=== PATIENT | male | born 1975 | race Asian ===

== ENCOUNTER 2019-08-14 12:27 | Emergency (ER) | payer SELFPAY ==
--- NOTE | 2019-08-14 13:36 | Event Note ---
ED Screening Note ED Screening Note: N/V/D that began three days ago abd cramping subjective fever no cough, no congestion PMHx HIV, on has not been taking his antivirals in three weeks no allergies to meds This initial assessment/diagnostic orders/clinical plan/treatment(s) is/are subject to change based on patients health status, clinical progression and re- assessment by fellow clinical providers in the ED. Further treatment and workup at subsequent clinical providers discretion. Patient/guardian urged not to elope from the ED as their condition may be serious if not clinically assessed and managed. Initial orders include: labs, UA
[2019-08-14 13:38] VITALS: BP 160/105
[2019-08-14] MEDS ORDERED: SODIUM CHLORIDE 0.9% 1000 ML 1,000 ML IV ONE (14:41)
[2019-08-14] MEDS ORDERED: MORPHINE 4 MG/1 ML INJ IV ONE (14:41)
[2019-08-14] MEDS ORDERED: ONDANSETRON 4 MG/2 ML INJ IV ONE (14:41)
[2019-08-14 15:18] LABS: Basophils % (Auto) 0.3 % (0.0-1.8); Eosinophils # (Auto) 0.1 K/mm3 (0.0-0.4); Eosinophils % (Auto) 1.1 % (0.0-4.3); Hematocrit 45.4 % (35.5-45.6); Hemoglobin 14.5 gm/dl (11.8-15.2); Lymphocytes # (Auto) 1.6 K/mm3 (1.2-5.4); Lymphocytes % (Auto) 31.8 % (13.4-35.0); Mean Corpuscular HGB Conc 32 % (32-34); Mean Corpuscular Volume 74 fl (84-94); Monocytes # (Auto) 0.2 K/mm3 (0.0-0.8); Monocytes % (Auto) 4.4 % (0.0-7.3); Platelet Count 243 K/mm3 (140-440); Red Blood Count 6.14 M/mm3 (3.65-5.03); Red Cell Distribution Width 17.3 % (13.2-15.2)
[2019-08-14 15:40] LABS: Alanine Aminotransferase 11 units/L (7-56); Albumin 4.1 g/dL (3.9-5); BUN/Creatinine Ratio 15; Blood Urea Nitrogen 12 mg/dL (9-20); Calcium 9.2 mg/dL (8.4-10.2); Hemolysis Index 37
--- NOTE | 2019-08-14 16:27 | Emergency Department Report ---
ED General Adult HPI - General Chief complaint: Abdominal Pain Stated complaint: N/V Time Seen by Provider: 08/14/19 13:34 Source: patient Mode of arrival: Ambulatory Limitations: No Limitations - History of Present Illness Initial comments: Patient presents to the emergency department with a chief complaint of abdominal pain with nausea and vomiting. Patient states his symptoms started yesterday. Patient denies diarrhea. Patient states the abdominal pain is diffuse in nature -: Sudden Location: abdomen Severity scale (0 -10): 8 Quality: stabbing Consistency: constant Improves with: none Worsens with: none Associated Symptoms: denies other symptoms Treatments Prior to Arrival: none - Related Data Previous Rx's Medication Instructions Recorded Last Taken Type HYDROcodone/APAP 5-325 [[place] 1 each PO Q6HR PRN #12 tablet 08/14/19 Unknown Rx 5/325] Ondansetron [Zofran Odt] 4 mg PO Q4HR PRN #20 tab.rapdis 08/14/19 Unknown Rx Promethazine [Phenergan TAB] 25 mg PO Q6HR PRN #20 tab 08/14/19 Unknown Rx Allergies Allergy/AdvReac Type Severity Reaction Status Date / Time No Known Allergies Allergy Verified 08/14/19 12:33 ED Review of Systems ROS: Stated complaint: N/V Other details as noted in HPI Constitutional: denies: chills, fever Eyes: denies: eye pain, eye discharge, vision change ENT: denies: ear pain, throat pain Respiratory: denies: cough, shortness of breath, wheezing Cardiovascular: denies: chest pain, palpitations Endocrine: no symptoms reported Gastrointestinal: abdominal pain, nausea, vomiting. denies: diarrhea Genitourinary: denies: urgency, dysuria Musculoskeletal: denies: back pain, joint swelling, arthralgia Skin: denies: rash, lesions Neurological: denies: headache, weakness, paresthesias Psychiatric: denies: anxiety, depression Hematological/Lymphatic: denies: easy bleeding, easy bruising ED Past Medical Hx - Past Medical History Previous Medical History?: Yes Hx Hypertension: Yes - Surgical History Past Surgical History?: No - Social History Smoking Status: Never Smoker Substance Use Type: None - Medications Home Medications: Home Medications Medication Instructions Recorded Confirmed Last Taken Type HYDROcodone/APAP 5-325 [[place] 1 each PO Q6HR PRN #12 tablet 08/14/19 Unknown Rx 5/325] Ondansetron [Zofran Odt] 4 mg PO Q4HR PRN #20 tab.rapdis 08/14/19 Unknown Rx Promethazine [Phenergan TAB] 25 mg PO Q6HR PRN #20 tab 08/14/19 Unknown Rx ED Physical Exam - General Limitations: No Limitations General appearance: alert, in no apparent distress - Head Head exam: Present: atraumatic, normocephalic - Eye Eye exam: Present: normal appearance, PERRL, EOMI - ENT ENT exam: Present: mucous membranes dry - Neck Neck exam: Present: normal inspection - Respiratory Respiratory exam: Present: normal lung sounds bilaterally. Absent: respiratory distress - Cardiovascular Cardiovascular Exam: Present: regular rate, normal rhythm. Absent: systolic murmur, diastolic murmur, rubs, gallop - GI/Abdominal GI/Abdominal exam: Present: soft, tenderness (right diffusely tender to palpation ), normal bowel sounds. Absent: distended - Rectal Rectal exam: Present: deferred - Extremities Exam Extremities exam: Present: normal inspection - Back Exam Back exam: Present: normal inspection - Neurological Exam Neurological exam: Present: alert, oriented X3, CN II-XII intact. Absent: motor sensory deficit - Psychiatric Psychiatric exam: Present: normal affect, normal mood - Skin Skin exam: Present: warm, dry, intact, normal color. Absent: rash ED Course Vital Signs 08/14/19 13:36 Temperature 98.7 F Pulse Rate 64 Respiratory 18 Rate Blood Pressure 160/105 Blood Pressure 160/105 [Right] O2 Sat by Pulse 98 Oximetry ED Medical Decision Making - Lab Data Result diagrams: 08/14/19 15:03 08/14/19 15:03 Lab Results 08/14/19 08/14/19 08/14/19 Range/Units 15:03 15:03 16:52 WBC 5.1 (4.5-11.0) K/mm3 RBC 6.14 H (3.65-5.03) M/mm3 Hgb 14.5 (11.8-15.2) gm/dl Hct 45.4 (35.5-45.6) % MCV 74 L (84-94) fl MCH 24 L (28-32) pg MCHC 32 (32-34) % RDW 17.3 H (13.2-15.2) % Plt Count 243 (140-440) K/mm3 Lymph % (Auto) 31.8 (13.4-35.0) % [place] % (Auto) 4.4 (0.0-7.3) % Eos % (Auto) 1.1 (0.0-4.3) % Baso % (Auto) 0.3 (0.0-1.8) % Lymph # 1.6 (1.2-5.4) K/mm3 [place] # 0.2 (0.0-0.8) K/mm3 Eos # 0.1 (0.0-0.4) K/mm3 Baso # 0.0 (0.0-0.1) K/mm3 Seg Neutrophils % 62.4 (40.0-70.0) % Seg Neutrophils # 3.2 (1.8-7.7) K/mm3 Sodium 138 (137-145) mmol/L Potassium 3.9 (3.6-5.0) mmol/L Chloride 101.9 (98-107) mmol/L Carbon Dioxide 23 (22-30) mmol/L Anion Gap 17 mmol/L BUN 12 (9-20) mg/dL Creatinine 0.8 (0.8-1.5) mg/dL Estimated GFR > 60 ml/min BUN/Creatinine Ratio 15 % Glucose 87 (75-100) mg/dL Calcium 9.2 (8.4-10.2) mg/dL Total Bilirubin 0.80 (0.1-1.2) mg/dL AST 22 (5-40) units/L ALT 11 (7-56) units/L Alkaline Phosphatase 60 (35-129) units/L Total Protein 9.1 H (6.3-8.2) g/dL Albumin 4.1 (3.9-5) g/dL Albumin/Globulin Ratio 0.8 % Lipase 37 (13-60) units/L Urine Color Yellow (Yellow) Urine Turbidity Clear (Clear) Urine pH 7.0 (5.0-7.0) Ur Specific [place] 1.029 (1.003-1.030) Urine Protein 100 mg/dl (Negative) mg/dL Urine Glucose (UA) Neg (Negative) mg/dL Urine Ketones 80 (Negative) mg/dL Urine Blood Neg (Negative) Urine Nitrite Neg (Negative) Urine Bilirubin Neg (Negative) Urine Urobilinogen 4.0 (<2.0) mg/dL Ur Leukocyte Esterase Neg (Negative) Urine WBC (Auto) 4.0 (0.0-6.0) /HPF Urine RBC (Auto) 13.0 (0.0-6.0) /HPF U Epithel Cells (Auto) 2.0 (0-13.0) /HPF Urine Mucus 2+ /HPF - Radiology Data Radiology results: report reviewed - Medical Decision Making Discussed results with patient Critical care attestation.: If time is entered above; I have spent that time in minutes in the direct care of this critically ill patient, excluding procedure time. ED Disposition Clinical Impression: Abdominal pain, Gallstones, Nausea & vomiting Disposition: TO HOME OR SELFCARE Is pt being admited?: No Does the pt Need Aspirin: No Condition: Stable Instructions: Abdominal Pain (ED), Biliary Colic (ED), Acute Nausea and Vomiting (ED) Additional Instructions: return if worse Referrals: [facility] [Other] - 3-5 Days KYE TODD MD [Staff Physician] - 3-5 Days Time of Disposition: 18:23
[2019-08-14 17:21] LABS: Bilirubin,Urine NEG (Negative); Blood,Urine NEG (Negative); Color,Urine Yellow (Yellow); Mucus,Urine 2+ /HPF
--- NOTE | 2019-08-14 18:10 | Cat Scan Report ---
CT OF THE ABDOMEN AND PELVIS WITH INTRAVENOUS CONTRAST INDICATION / CLINICAL INFORMATION: Abdominal pain. TECHNIQUE: The patient received 100 cc Omnipaque [address] scans at this location are performed using CT dose reduction for ALARA by means of automated exposure control. COMPARISON: None available. FINDINGS: ABDOMEN: There are numerous tiny calcified stones in the gallbladder. The gallbladder is normal in si ze without wall thickening. There is a 6 mm rounded cyst in the pancreatic head. There is a tiny cyst in the dome of the liver. The bile ducts, spleen and adrenal glands are normal. There are small bila teral simple renal cysts, the largest which measures 1.7 cm on the left. There are multiple nonobstru ctive left renal calculi, the largest of which measures approximately 8 mm. There is associated corti elodia scarring involving the left kidney. There is no evidence of bowel obstruction, wall thickening or free air. No adenopathy is seen. The lung bases are clear. PELVIS: The distal ureters, urinary bladder and prostate gland are normal. There is no evidence of di verticulitis. A normal appendix is present. No abnormal mass or fluid collection is seen. I do not id entify a hernia. IMPRESSION: 1. Cholelithiasis without CT evidence of acute cholecystitis. 2. Nonobstructive left nephrolithiasis with associated cortical scarring. 3. Incidental 6 mm cyst in the pancreatic head. Reimaging every year for 5 years is recommended to do cument stability (utilizing contrast enhanced MRI or pancreas protocol CT). Signer Name: Adrián Wright MD Signed: 08/14/2019 6:06 PM Workstation Name: [id number]
== END 2019-08-14 18:37 | disposition home or self-care (01) ==
LOC: ED 12:27
DX: K80.80 Other cholelithiasis without obstruction (principal); R11.2 Nausea with vomiting, unspecified; I10 Essential (primary) hypertension
CPT/HCPCS: 36415; 74177; 80053; 81001; 83690; 85025; 96361; 96374; 96375; 99284; J2270; J2405; J7030; Q9967

== ENCOUNTER 2020-01-14 11:56 | Inpatient (IN) | payer OTHER ==
[2020-01-14] MEDS ORDERED: MORPHINE 4 MG/1 ML INJ IV ONE (13:45)
[2020-01-14] MEDS ORDERED: DICYCLOMINE 10 MG/5 ML ORAL LIQD PO ONE (13:45)
[2020-01-14] MEDS ORDERED: ONDANSETRON 4 MG/2 ML INJ IV ONE (13:45)
[2020-01-14] MEDS ORDERED: SODIUM CHLORIDE 0.9% 1000 ML 1,000 ML IV ONE (13:45)
[2020-01-14 13:46] LABS: Basophils % (Auto) 0.4 % (0.0-1.8); Eosinophils % (Auto) 0.3 % (0.0-4.3); Hematocrit 45.9 % (35.5-45.6); Hemoglobin 14.6 gm/dl (11.8-15.2); Lymphocytes % (Auto) 38.3 % (13.4-35.0); Mean Corpuscular HGB Conc 32 % (32-34); Mean Corpuscular Volume 74 fl (84-94); Monocytes # (Auto) 0.5 K/mm3 (0.0-0.8); Monocytes % (Auto) 6.5 % (0.0-7.3); Platelet Count 300 K/mm3 (140-440); Red Cell Distribution Width 19.1 % (13.2-15.2)
--- NOTE | 2020-01-14 13:59 | Emergency Department Report ---
ED Abdominal Pain HPI - General Chief Complaint: Abdominal Pain Stated Complaint: SOB/V Time Seen by Provider: 01/14/20 13:44 Source: patient Mode of arrival: Ambulatory Limitations: No Limitations - History of Present Illness Initial Comments: This is a 44-year-old male nontoxic, well nourished in appearance, no acute signs of distress presents to the ED with c/o of nausea and vomiting and abdominal pain 1 day. Patient describes vomiting as food content and yellow gastric acid. Patient describes abdominal pain as cramping and aching with level of 3/10 diffuse. Patient denies chest pain, short of breath, fever, hemoptysis, blood in stool, chills, headache, stiff neck, numbness or tingling. Patient denies any diarrhea or constipation. Denies any blood in stool. Patient denies any recent travels. Patient denies any allergies. PMH includes HIV. MD Complaint: abdominal pain -: days(s) Location: diffuse Radiation: none Migration to: no migration Severity: mild Severity scale (0 -10): 8 Quality: cramping, aching Consistency: constant Improves With: nothing Worsens With: nothing Associated Symptoms: nausea, vomiting. denies: diarrhea, fever, chills, constipation, dysuria, hematemesis, hematochezia, melena, hematuria, anorexia, syncope - Related Data Previous Rx's Medication Instructions Recorded Last Taken Type HYDROcodone/APAP 5-325 [[place] 1 each PO Q6HR PRN #12 tablet 08/14/19 Unknown Rx 5/325] Ondansetron [Zofran Odt] 4 mg PO Q4HR PRN #20 tab.rapdis 08/14/19 Unknown Rx Promethazine [Phenergan TAB] 25 mg PO Q6HR PRN #20 tab 08/14/19 Unknown Rx Allergies Allergy/AdvReac Type Severity Reaction Status Date / Time No Known Allergies Allergy Verified 01/14/20 12:07 ED Review of Systems ROS: Stated complaint: SOB/V Other details as noted in HPI Constitutional: denies: chills, fever Eyes: denies: eye pain, eye discharge, vision change ENT: denies: ear pain, throat pain Respiratory: denies: cough, shortness of breath, wheezing Cardiovascular: denies: chest pain, palpitations Endocrine: no symptoms reported Gastrointestinal: abdominal pain, nausea, vomiting. denies: diarrhea Genitourinary: denies: urgency, dysuria Musculoskeletal: denies: back pain, joint swelling, arthralgia Skin: denies: rash, lesions Neurological: denies: headache, weakness, paresthesias Psychiatric: denies: anxiety, depression Hematological/Lymphatic: denies: easy bleeding, easy bruising ED Past Medical Hx - Past Medical History Previous Medical History?: No Hx Hypertension: Yes - Surgical History Past Surgical History?: No - Social History Smoking Status: Never Smoker - Medications Home Medications: Home Medications Medication Instructions Recorded Confirmed Last Taken Type HYDROcodone/APAP 5-325 [[place] 1 each PO Q6HR PRN #12 tablet 08/14/19 Unknown Rx 5/325] Ondansetron [Zofran Odt] 4 mg PO Q4HR PRN #20 tab.rapdis 08/14/19 Unknown Rx Promethazine [Phenergan TAB] 25 mg PO Q6HR PRN #20 tab 08/14/19 Unknown Rx ED Physical Exam - General Limitations: No Limitations General appearance: alert, in no apparent distress - Head Head exam: Present: atraumatic, normocephalic - Eye Eye exam: Present: normal appearance - Neck Neck exam: Present: normal inspection, full ROM. Absent: tenderness, meningismus, lymphadenopathy - Respiratory Respiratory exam: Present: normal lung sounds bilaterally. Absent: respiratory distress, wheezes, rales, rhonchi, stridor, chest wall tenderness, accessory muscle use, decreased breath sounds, prolonged expiratory - Cardiovascular Cardiovascular Exam: Present: regular rate, normal rhythm, normal heart sounds. Absent: irregular rhythm, systolic murmur, diastolic murmur, rubs, gallop - GI/Abdominal GI/Abdominal exam: Present: soft, tenderness (diffuse), normal bowel sounds. Absent: distended, guarding, rebound, rigid, diminished bowel sounds - Extremities Exam Extremities exam: Present: normal inspection, full ROM, normal capillary refill. Absent: tenderness - Back Exam Back exam: Present: normal inspection, full ROM. Absent: tenderness, CVA tenderness (R), CVA tenderness (L), muscle spasm, paraspinal tenderness, vertebral tenderness, rash noted - Neurological Exam Neurological exam: Present: alert, oriented X3, normal gait - Psychiatric Psychiatric exam: Present: normal affect, normal mood - Skin Skin exam: Present: warm, dry, intact, normal color. Absent: rash ED Course Vital Signs 01/14/20 01/14/20 13:43 15:27 Temperature 98.2 F Pulse Rate 68 Respiratory 18 16 Rate Blood Pressure 105/67 [Left] O2 Sat by Pulse 98 Oximetry - Reevaluation(s) Reevaluation #1: 01/14/20 13:59 Patient is speaking in full sentences with no signs of distress noted. - Consultations Consultation #1: 01/14/20 16:25 Patient has been consulted with Dr. Cruz (general surgery) about patient history, physical exam, and labs/imaging studies and agrees for admission and ED treatment plan. ED Medical Decision Making - Lab Data Result diagrams: 01/14/20 12:53 01/14/20 12:53 Lab Results 01/14/20 Range/Units 12:53 WBC 7.9 (4.5-11.0) K/mm3 RBC 6.20 H (3.65-5.03) M/mm3 Hgb 14.6 (11.8-15.2) gm/dl Hct 45.9 H (35.5-45.6) % MCV 74 L (84-94) fl MCH 24 L (28-32) pg MCHC 32 (32-34) % RDW 19.1 H (13.2-15.2) % Plt Count 300 (140-440) K/mm3 Lymph % (Auto) 38.3 H (13.4-35.0) % [place] % (Auto) 6.5 (0.0-7.3) % Eos % (Auto) 0.3 (0.0-4.3) % Baso % (Auto) 0.4 (0.0-1.8) % Lymph # 3.0 (1.2-5.4) K/mm3 [place] # 0.5 (0.0-0.8) K/mm3 Eos # 0.0 (0.0-0.4) K/mm3 Baso # 0.0 (0.0-0.1) K/mm3 Seg Neutrophils % 54.5 (40.0-70.0) % Seg Neutrophils # 4.3 (1.8-7.7) K/mm3 Lab Results 01/14/20 01/14/20 01/14/20 Range/Units 12:53 12:53 12:53 WBC 7.9 (4.5-11.0) K/mm3 RBC 6.20 H (3.65-5.03) M/mm3 Hgb 14.6 (11.8-15.2) gm/dl Hct 45.9 H (35.5-45.6) % MCV 74 L (84-94) fl MCH 24 L (28-32) pg MCHC 32 (32-34) % RDW 19.1 H (13.2-15.2) % Plt Count 300 (140-440) K/mm3 Lymph % (Auto) 38.3 H (13.4-35.0) % [place] % (Auto) 6.5 (0.0-7.3) % Eos % (Auto) 0.3 (0.0-4.3) % Baso % (Auto) 0.4 (0.0-1.8) % Lymph # 3.0 (1.2-5.4) K/mm3 [place] # 0.5 (0.0-0.8) K/mm3 Eos # 0.0 (0.0-0.4) K/mm3 Baso # 0.0 (0.0-0.1) K/mm3 Seg Neutrophils % 54.5 (40.0-70.0) % Seg Neutrophils # 4.3 (1.8-7.7) K/mm3 Sodium 137 (137-145) mmol/L Potassium 4.2 (3.6-5.0) mmol/L Chloride 95.8 L (98-107) mmol/L Carbon Dioxide 23 (22-30) mmol/L Anion Gap 22 mmol/L BUN 15 (9-20) mg/dL Creatinine 1.0 (0.8-1.5) mg/dL Estimated GFR > 60 ml/min BUN/Creatinine Ratio 15 % Glucose 87 (75-100) mg/dL Calcium 9.8 (8.4-10.2) mg/dL Total Bilirubin 0.90 (0.1-1.2) mg/dL AST 27 (5-40) units/L ALT 20 (7-56) units/L Alkaline Phosphatase 92 (35-129) units/L Total Protein 9.5 H (6.3-8.2) g/dL Albumin 4.6 (3.9-5) g/dL Albumin/Globulin Ratio 0.9 % Lipase 45 (13-60) units/L Urine Color (Yellow) Urine Turbidity (Clear) Urine pH (5.0-7.0) Ur Specific [place] (1.003-1.030) Urine Protein (Negative) mg/dL Urine Glucose (UA) (Negative) mg/dL Urine Ketones (Negative) mg/dL Urine Blood (Negative) Urine Nitrite (Negative) Urine Bilirubin (Negative) Urine Urobilinogen (<2.0) mg/dL Ur Leukocyte Esterase (Negative) Urine WBC (Auto) (0.0-6.0) /HPF Urine RBC (Auto) (0.0-6.0) /HPF U Epithel Cells (Auto) (0-13.0) /HPF Urine Mucus /HPF 01/14/20 Range/Units Unknown WBC (4.5-11.0) K/mm3 RBC (3.65-5.03) M/mm3 Hgb (11.8-15.2) gm/dl Hct (35.5-45.6) % MCV (84-94) fl MCH (28-32) pg MCHC (32-34) % RDW (13.2-15.2) % Plt Count (140-440) K/mm3 Lymph % (Auto) (13.4-35.0) % [place] % (Auto) (0.0-7.3) % Eos % (Auto) (0.0-4.3) % Baso % (Auto) (0.0-1.8) % Lymph # (1.2-5.4) K/mm3 [place] # (0.0-0.8) K/mm3 Eos # (0.0-0.4) K/mm3 Baso # (0.0-0.1) K/mm3 Seg Neutrophils % (40.0-70.0) % Seg Neutrophils # (1.8-7.7) K/mm3 Sodium (137-145) mmol/L Potassium (3.6-5.0) mmol/L Chloride (98-107) mmol/L Carbon Dioxide (22-30) mmol/L Anion Gap mmol/L BUN (9-20) mg/dL Creatinine (0.8-1.5) mg/dL Estimated GFR ml/min BUN/Creatinine Ratio % Glucose (75-100) mg/dL Calcium (8.4-10.2) mg/dL Total Bilirubin (0.1-1.2) mg/dL AST (5-40) units/L ALT (7-56) units/L Alkaline Phosphatase (35-129) units/L Total Protein (6.3-8.2) g/dL Albumin (3.9-5) g/dL Albumin/Globulin Ratio % Lipase (13-60) units/L Urine Color Yellow (Yellow) Urine Turbidity Clear (Clear) Urine pH 6.0 (5.0-7.0) Ur Specific [place] 1.031 H (1.003-1.030) Urine Protein 100 mg/dl (Negative) mg/dL Urine Glucose (UA) Neg (Negative) mg/dL Urine Ketones Tr (Negative) mg/dL Urine Blood Sm (Negative) Urine Nitrite Neg (Negative) Urine Bilirubin Neg (Negative) Urine Urobilinogen < 2.0 (<2.0) mg/dL Ur Leukocyte Esterase Tr (Negative) Urine WBC (Auto) 18.0 H (0.0-6.0) /HPF Urine RBC (Auto) 11.0 (0.0-6.0) /HPF U Epithel Cells (Auto) 3.0 (0-13.0) /HPF Urine Mucus 3+ /HPF - Radiology Data CT abdomen pelvis w con INDICATION: abd pain. TECHNIQUE: All CT scans at this location are performed using the following dose modulation technique: Automated exposure control. CONTRAST: IV. COMPARISON: CT abdomen and pelvis 08/14/2019. CT ABDOMEN: Evaluation of the parenchymal organs demonstrates a subcentimeter low-density lesion at the dome the liver, left renal cyst and nonobstructing left renal stones with the largest measuring 8 mm. Medial left renal scarring remains. The remaining parenchymal organs are unremarkable. Negative for abdominal mass, fluid or inflammation. The bowel is not dilated. Calcified gallstones are present. CT PELVIS: The appendix is normal. Colonic thickening at the hepatic flexure, descending colon and sigmoid colon is mild. IMPRESSION: 1. Mild left-sided colitis. The distribution can be seen with ischemia. 2. The appearance of the liver and left kidney is unchanged. Signer Name: Corey Barajas MD Signed: 01/14/2020 2:27 PM Workstation Name: [id number] - Medical Decision Making 44-year-old male that presents with colitis. Patient is stable and was examined by me. Labs has been obtained. CT scan dictated by radiologist with colitis possible ischemic changes. Patient consulted with Dr. Cruz and admitted with hospitalist Dr. Elise. Patient placed on n.p.o. Received antibiotics in the ER. At time of admission, the patient does not seem toxic or ill in appearance. No acute signs of distress noted. Patient agrees to admission treatment plan of care. No further questions noted by the patient. Critical care attestation.: If time is entered above; I have spent that time in minutes in the direct care of this critically ill patient, excluding procedure time. ED Disposition Clinical Impression: Colitis Disposition: OP ADMIT IP TO THIS HOSP Is pt being admited?: Yes
[2020-01-14 14:09] LABS: Alanine Aminotransferase 20 units/L (7-56); Albumin 4.6 g/dL (3.9-5); BUN/Creatinine Ratio 15; Blood Urea Nitrogen 15 mg/dL (9-20); Calcium 9.8 mg/dL (8.4-10.2); Hemolysis Index 10
[2020-01-14 15:12] LABS: Bilirubin,Urine NEG (Negative); Blood,Urine SM (Negative); Color,Urine Yellow (Yellow); Mucus,Urine 3+ /HPF; Urobilinogen,Urine < 2.0 mg/dL (<2.0)
--- NOTE | 2020-01-14 15:31 | Cat Scan Report ---
CT abdomen pelvis w con INDICATION: abd pain. TECHNIQUE: All CT scans at this location are performed using the following dose modulation technique: Automated exposure control. CONTRAST: IV. COMPARISON: CT abdomen and pelvis 08/14/2019. CT ABDOMEN: Evaluation of the parenchymal organs demonstrates a subcentimeter low-density lesion at t he dome the liver, left renal cyst and nonobstructing left renal stones with the largest measuring 8 mm. Medial left renal scarring remains. The remaining parenchymal organs are unremarkable. Negative for abdominal mass, fluid or inflammation. The bowel is not dilated. Calcified gallstones ar e present. CT PELVIS: The appendix is normal. Colonic thickening at the hepatic flexure, descending colon and sigmoid colon is mild. IMPRESSION: 1. Mild left-sided colitis. The distribution can be seen with ischemia. 2. The appearance of the liver and left kidney is unchanged. Signer Name: Corey Barajas MD Signed: 01/14/2020 3:27 PM Workstation Name: [id number]
[2020-01-14] MEDS ORDERED: metroNIDAZOLE/NS 500 MG/100 ML 500 MG/100 ML BAG IV ONE (16:24)
--- NOTE | 2020-01-14 17:36 | Consultation ---
History of Present Illness Consult date: 01/14/20 Reason for consult: abdominal pain Chief complaint: Abdominal pain - History of present illness History of present illness: 44-year-old male with past medical history of HIV who presented to the emergency room with 1 day history of acute abdominal pain, nausea, vomiting. The patient states that yesterday he had one episode of diarrhea and then had a meal at [employer]. After he ate, he immediately felt the urge to vomit. He describes crampy abdominal pain, now mostly in the left abdomen. It does not radiate. His nausea and vomiting are resolved. When he did have vomiting, he states it was a mixture of green and orange. No hematemesis. No fevers, chills, chest pain, shortness of breath. He states that he has had similar symptoms once before few months ago which resolved with some antinausea and pain medications in the emergency room. After being treated in the emergency room on this visit, the patient states he feels much better. He feels very hungry. His abdominal pain is almost resolved. Past History Past Medical History: HIV/AIDS Past Surgical History: No surgical history Social history: no significant social history Family history: cancer (Sister with colon cancer in her 30s) Medications and Allergies Allergies Allergy/AdvReac Type Severity Reaction Status Date / Time No Known Allergies Allergy Verified 01/14/20 12:07 Home Medications Medication Instructions Recorded Confirmed Last Taken Type HYDROcodone/APAP 5-325 [[place] 1 each PO Q6HR PRN #12 tablet 08/14/19 Unknown Rx 5/325] Ondansetron [Zofran Odt] 4 mg PO Q4HR PRN #20 tab.rapdis 08/14/19 Unknown Rx Promethazine [Phenergan TAB] 25 mg PO Q6HR PRN #20 tab 08/14/19 Unknown Rx Active Meds: Active Medications Levofloxacin/Dextrose (Levaquin 750mg/150ml) 750 mg in 150 mls @ 100 mls/hr IV ONCE ONE; Protocol Stop: 01/14/20 17:54 Review of Systems All systems: negative (10 point review of systems was performed and negative except for that listed in HPI) Exam Vital Signs Resp 18 01/14/20 13:43 Narrative exam: Gen.: Awake, alert, oriented 3. No apparent distress ENT: Trachea midline. No lymphadenopathy. No scleral icterus or conjunctival pallor CV: S1, S2 present Respiratory: No audible wheezes Abdomen: Soft, nondistended, nontender. No rebound, rigidity, guarding Extremities: No clubbing, cyanosis, edema Results - Labs 01/14/20 12:53 01/14/20 12:53 Abnormal lab results 01/14/20 01/14/20 01/14/20 Range/Units 12:53 12:53 Unknown RBC 6.20 H (3.65-5.03) M/mm3 Hct 45.9 H (35.5-45.6) % MCV 74 L (84-94) fl MCH 24 L (28-32) pg RDW 19.1 H (13.2-15.2) % Lymph % (Auto) 38.3 H (13.4-35.0) % Chloride 95.8 L (98-107) mmol/L Total Protein 9.5 H (6.3-8.2) g/dL Ur Specific [place] 1.031 H (1.003-1.030) Urine WBC (Auto) 18.0 H (0.0-6.0) /HPF Diabetes panel 01/14/20 Range/Units 12:53 Sodium 137 (137-145) mmol/L Potassium 4.2 (3.6-5.0) mmol/L Chloride 95.8 L (98-107) mmol/L Carbon Dioxide 23 (22-30) mmol/L BUN 15 (9-20) mg/dL Creatinine 1.0 (0.8-1.5) mg/dL Glucose 87 (75-100) mg/dL Calcium 9.8 (8.4-10.2) mg/dL AST 27 (5-40) units/L ALT 20 (7-56) units/L Alkaline Phosphatase 92 (35-129) units/L Total Protein 9.5 H (6.3-8.2) g/dL Albumin 4.6 (3.9-5) g/dL Calcium panel 01/14/20 Range/Units 12:53 Calcium 9.8 (8.4-10.2) mg/dL Albumin 4.6 (3.9-5) g/dL Pituitary panel 01/14/20 Range/Units 12:53 Sodium 137 (137-145) mmol/L Potassium 4.2 (3.6-5.0) mmol/L Chloride 95.8 L (98-107) mmol/L Carbon Dioxide 23 (22-30) mmol/L BUN 15 (9-20) mg/dL Creatinine 1.0 (0.8-1.5) mg/dL Glucose 87 (75-100) mg/dL Calcium 9.8 (8.4-10.2) mg/dL Adrenal panel 01/14/20 Range/Units 12:53 Sodium 137 (137-145) mmol/L Potassium 4.2 (3.6-5.0) mmol/L Chloride 95.8 L (98-107) mmol/L Carbon Dioxide 23 (22-30) mmol/L BUN 15 (9-20) mg/dL Creatinine 1.0 (0.8-1.5) mg/dL Glucose 87 (75-100) mg/dL Calcium 9.8 (8.4-10.2) mg/dL Total Bilirubin 0.90 (0.1-1.2) mg/dL AST 27 (5-40) units/L ALT 20 (7-56) units/L Alkaline Phosphatase 92 (35-129) units/L Total Protein 9.5 H (6.3-8.2) g/dL Albumin 4.6 (3.9-5) g/dL - Imaging CT scan - abdomen: report reviewed, image reviewed CT scan - pelvis: report reviewed, image reviewed Assessment and Plan 44-year-old male with mild left-sided colitis Plan: Pt admitted to hospitalist service 1. full liquid diet and adv as skye 2. IVF 3. IV abx -> may transition to p.o. upon discharge for 10 days total 4. prn pain and nausea control 5. Strongly recommend outpatient referral to gastroenterology for colonoscopy as patient has a first-degree relative who had colon cancer in her 30s. This was discussed with the patient 6. ok to dc in am if skye diet Thank you, please call with questions
[2020-01-14] MEDS ORDERED: MORPHINE 2 MG/1 ML INJ IV PRN (22:09)
[2020-01-14] MEDS ORDERED: ONDANSETRON 4 MG/2 ML INJ IV PRN (22:09)
[2020-01-14] MEDS ORDERED: MAGNESIUM HYDROXIDE (MOM) ORAL LIQD UDC PO PRN (22:09)
[2020-01-14] MEDS ORDERED: ACETAMINOPHEN 325 MG TAB PO PRN (22:09)
--- NOTE | 2020-01-14 22:17 | History and Physical Report ---
History of Present Illness Date of examination: 01/14/20 Date of admission: 01/14/20 21:34 Chief complaint: Abdominal pain History of present illness: 44-year-old male with significant history of HIV presenting to the emergency room today complaining of nausea and vomiting with associated abdominal pain. Abdominal pain is said to be diffuse and on a scale of 10 was about 3/10. Abdominal pain was more on the left side of his abdomen. He denies any chest pain or shortness of breath, denies any fever or chills, no headache or dizziness, no bright red blood per rectum, no hematuria or dysuria. He had a bout of diarrhea which has since resolved. Patient denies any sick contacts and no recent travel. Work-up in the emergency room including CT of the abdomen and pelvis was concerning for colitis with possible ischemia. General surgeon Dr. Cruz was consulted by the ER physician patient will be promptly evaluated. Past History Past Medical History: HIV/AIDS Past Surgical History: No surgical history Social history: no significant social history Family history: cancer (Sister with colon cancer in her 30s) Medications and Allergies Allergies Allergy/AdvReac Type Severity Reaction Status Date / Time No Known Allergies Allergy Verified 01/14/20 12:07 Home Medications Medication Instructions Recorded Confirmed Last Taken Type Bictegrav/Emtricit/Tenofov Ala 1 tab PO DAILY 01/14/20 01/14/20 01/13/20 History [Biktarvy 50-200-25 mg (Nf)] 1 Active Meds: Active Medications Acetaminophen (Tylenol) 650 mg PO Q4H PRN PRN Reason: Pain MILD(1-3)/Fever >100.5/LOGAN Sodium Chloride (Nacl 0.9% 1000 Ml) 1,000 mls @ 125 mls/hr IV DIRECT NILTON Magnesium Hydroxide (Milk Of Magnesia) 30 ml PO Q4H PRN PRN Reason: Constipation Morphine Sulfate (Morphine) 2 mg IV Q4H PRN PRN Reason: Pain, Moderate (4-6) Ondansetron HCl (Zofran) 4 mg IV Q8H PRN PRN Reason: Nausea And Vomiting Sodium Chloride (Sodium Chloride Flush Syringe 10 Ml) 10 ml IV BID NILTON Sodium Chloride (Sodium Chloride Flush Syringe 10 Ml) 10 ml IV PRN PRN PRN Reason: LINE FLUSH Review of Systems Constitutional: no fever, no chills Cardiovascular: no chest pain, no palpitations Respiratory: no cough, no shortness of breath Gastrointestinal: abdominal pain, nausea, vomiting Genitourinary Male: no dysuria, no hematuria Musculoskeletal: no neck pain, no low back pain Integumentary: no rash, no pruritis Neurological: no headaches, no confusion Psychiatric: no anxiety, no depression Exam - Constitutional Vitals: Temp Pulse Resp BP Pulse Ox 98.7 F 70 18 107/56 99 01/14/20 22:08 01/14/20 22:07 01/14/20 22:07 01/14/20 22:07 01/14/20 22:07 General appearance: Present: no acute distress, well-nourished - EENT Eyes: Present: PERRL, EOM intact ENT: hearing intact, clear oral mucosa, dentition normal - Neck Neck: Present: supple, normal ROM - Respiratory Respiratory effort: normal Respiratory: bilateral: CTA - Cardiovascular Rhythm: regular Heart Sounds: Present: S1 & S2 - Extremities Extremities: no ischemia, pulses intact, pulses symmetrical, No edema, Full ROM Peripheral Pulses: within normal limits - Abdominal General gastrointestinal: Present: soft, non-tender, tender (Mild tenderness in the left lower quadrant), normal bowel sounds - Integumentary Integumentary: Present: clear, warm, dry - Musculoskeletal Musculoskeletal: strength equal bilaterally - Psychiatric Psychiatric: appropriate mood/affect, intact judgment & insight, cooperative - Neurologic Neurologic: CNII-XII intact, moves all extremities Results - Labs CBC & Chem 7: 01/15/20 03:59 01/15/20 03:59 Labs: Abnormal lab results 01/14/20 01/14/20 01/14/20 Range/Units 12:53 12:53 Unknown RBC 6.20 H (3.65-5.03) M/mm3 Hct 45.9 H (35.5-45.6) % MCV 74 L (84-94) fl MCH 24 L (28-32) pg RDW 19.1 H (13.2-15.2) % Lymph % (Auto) 38.3 H (13.4-35.0) % Chloride 95.8 L (98-107) mmol/L Total Protein 9.5 H (6.3-8.2) g/dL Ur Specific [place] 1.031 H (1.003-1.030) Urine WBC (Auto) 18.0 H (0.0-6.0) /HPF Assessment and Plan - Patient Problems (1) Colitis Current Visit: Yes Status: Acute Plan to address problem: Patient admitted and placed on IV fluid and empiric IV antibiotics. General surgeon Dr. Cruz has been consulted for evaluation. (2) DVT prophylaxis Current Visit: Yes Status: Acute Plan to address problem: Patient placed on sequential compression device. (3) Full code status Current Visit: Yes Status: Acute
[2020-01-15] MEDS: SODIUM CHLORIDE 0.9% 1000 ML 1,000 ML IV SCH ×2 (00:29→05:22)
[2020-01-15 04:44] LABS: Hematocrit 40.5 % (35.5-45.6); Hemoglobin 12.9 gm/dl (11.8-15.2); Mean Corpuscular HGB Conc 32 % (32-34); Mean Corpuscular Volume 72 fl (84-94); Platelet Count 298 K/mm3 (140-440); Red Blood Count 5.59 M/mm3 (3.65-5.03); Red Cell Distribution Width 19.1 % (13.2-15.2)
[2020-01-15 04:48] LABS: INR 1.01 (0.87-1.13)
[2020-01-15 04:59] LABS: BUN/Creatinine Ratio 17; Blood Urea Nitrogen 15 mg/dL (9-20); Calcium 8.6 mg/dL (8.4-10.2); Hemolysis Index 95
[2020-01-15] MEDS: metroNIDAZOLE/NS 500 MG/100 ML 500 MG/100 ML BAG IV SCH ×3 (05:21→21:22)
[2020-01-15 06:00] LABS: Basophils % (Manual) 0 % (0.0-1.8); Hypochromasia 1+; Total Cells Counted 100
[2020-01-15 06:01] LABS: Burr Cells Rare; Ovalocytes Few; Schistocytes Few; Target Cells 1+
[2020-01-15 06:02] LABS: Platelet Estimate Consistent w Auto
--- NOTE | 2020-01-15 11:49 | Progress Note ---
Assessment and Plan Assessment and plan: Acute colitis. Continue IV antibiotics. Surgery following. Consult GI for further evaluation. Advance diet today. Nausea and vomiting. Improved. Continue antiemetics. Strong family history Colon CA. GI F/U HIV/AIDS. Follow-up with ID as an outpatient. History Interval history: No new issues overnight. Hospitalist Physical - Constitutional Vitals: Temp Pulse Resp BP Pulse Ox 98.2 F 65 18 100/66 100 01/15/20 07:11 01/15/20 07:11 01/15/20 07:11 01/15/20 07:11 01/15/20 07:11 General appearance: Present: no acute distress, well-nourished - EENT Eyes: Present: PERRL, EOM intact ENT: hearing intact, clear oral mucosa, dentition normal - Neck Neck: Present: supple, normal ROM - Respiratory Respiratory effort: normal Respiratory: bilateral: CTA - Cardiovascular Rhythm: regular Heart Sounds: Present: S1 & S2. Absent: gallop, rub - Extremities Extremities: no ischemia, No edema, Full ROM - Abdominal General gastrointestinal: soft, non-tender, non-distended, normal bowel sounds - Integumentary Integumentary: Present: clear, warm, dry - Neurologic Neurologic: CNII-XII intact, moves all extremities Results - Labs CBC & Chem 7: 01/15/20 03:59 01/15/20 03:59 Labs: Laboratory Last Values WBC 5.6 K/mm3 (4.5-11.0) 01/15/20 03:59 RBC 5.59 M/mm3 (3.65-5.03) H 01/15/20 03:59 Hgb 12.9 gm/dl (11.8-15.2) 01/15/20 03:59 Hct 40.5 % (35.5-45.6) 01/15/20 03:59 MCV 72 fl (84-94) L 01/15/20 03:59 MCH 23 pg (28-32) L 01/15/20 03:59 MCHC 32 % (32-34) 01/15/20 03:59 RDW 19.1 % (13.2-15.2) H 01/15/20 03:59 Plt Count 298 K/mm3 (140-440) 01/15/20 03:59 Lymph % (Auto) 38.3 % (13.4-35.0) H 01/14/20 12:53 Page % (Auto) 6.5 % (0.0-7.3) 01/14/20 12:53 Eos % (Auto) 0.3 % (0.0-4.3) 01/14/20 12:53 Baso % (Auto) 0.4 % (0.0-1.8) 01/14/20 12:53 Lymph # 3.0 K/mm3 (1.2-5.4) 01/14/20 12:53 Page # 0.5 K/mm3 (0.0-0.8) 01/14/20 12:53 Eos # 0.0 K/mm3 (0.0-0.4) 01/14/20 12:53 Baso # 0.0 K/mm3 (0.0-0.1) 01/14/20 12:53 Add Manual Diff Complete 01/15/20 03:59 Total Counted 100 01/15/20 03:59 Seg Neutrophils % Transfer And [place] Operator 01/15/20 03:59 Seg Neuts % (Manual) 37.0 % (40.0-70.0) L 01/15/20 03:59 Band Neutrophils % 0 % 01/15/20 03:59 Lymphocytes % (Manual) 50.0 % (13.4-35.0) H 01/15/20 03:59 Reactive Lymphs % (Man) 0 % 01/15/20 03:59 Monocytes % (Manual) 2.0 % (0.0-7.3) 01/15/20 03:59 Eosinophils % (Manual) 11.0 % (0.0-4.3) H 01/15/20 03:59 Basophils % (Manual) 0 % (0.0-1.8) 01/15/20 03:59 Metamyelocytes % 0 % 01/15/20 03:59 Myelocytes % 0 % 01/15/20 03:59 Promyelocytes % 0 % 01/15/20 03:59 Blast Cells % 0 % 01/15/20 03:59 Nucleated RBC % Not Reportable 01/15/20 03:59 Seg Neutrophils # 4.3 K/mm3 (1.8-7.7) 01/14/20 12:53 Seg Neutrophils # Man 2.1 K/mm3 (1.8-7.7) 01/15/20 03:59 Band Neutrophils # 0.0 K/mm3 01/15/20 03:59 Lymphocytes # (Manual) 2.8 K/mm3 (1.2-5.4) 01/15/20 03:59 Abs React Lymphs (Man) 0.0 K/mm3 01/15/20 03:59 Monocytes # (Manual) 0.1 K/mm3 (0.0-0.8) 01/15/20 03:59 Eosinophils # (Manual) 0.6 K/mm3 (0.0-0.4) H 01/15/20 03:59 Basophils # (Manual) 0.0 K/mm3 (0.0-0.1) 01/15/20 03:59 Metamyelocytes # 0.0 K/mm3 01/15/20 03:59 Myelocytes # 0.0 K/mm3 01/15/20 03:59 Promyelocytes # 0.0 K/mm3 01/15/20 03:59 Blast Cells # 0.0 K/mm3 01/15/20 03:59 WBC Morphology Not Reportable 01/15/20 03:59 Hypersegmented Neuts Not Reportable 01/15/20 03:59 Hyposegmented Neuts Not Reportable 01/15/20 03:59 Hypogranular Neuts Not Reportable 01/15/20 03:59 Smudge Cells Not Reportable 01/15/20 03:59 Toxic Granulation Not Reportable 01/15/20 03:59 Toxic Vacuolation Not Reportable 01/15/20 03:59 Dohle Bodies Not Reportable 01/15/20 03:59 Pelger-Huet Anomaly Not Reportable 01/15/20 03:59 Ibeth Rods Not Reportable 01/15/20 03:59 Platelet Estimate Consistent w auto 01/15/20 03:59 Clumped Platelets Not Reportable 01/15/20 03:59 Plt Clumps, EDTA Not Reportable 01/15/20 03:59 Large Platelets Not Reportable 01/15/20 03:59 Giant Platelets Not Reportable 01/15/20 03:59 Platelet Satelliting Not Reportable 01/15/20 03:59 Plt Morphology Comment Not Reportable 01/15/20 03:59 RBC Morphology Not Reportable 01/15/20 03:59 Dimorphic RBCs Not Reportable 01/15/20 03:59 Polychromasia Not Reportable 01/15/20 03:59 Hypochromasia 1+ 01/15/20 03:59 Poikilocytosis Not Reportable 01/15/20 03:59 Anisocytosis Not Reportable 01/15/20 03:59 Microcytosis Not Reportable 01/15/20 03:59 Macrocytosis Not Reportable 01/15/20 03:59 Spherocytes Not Reportable 01/15/20 03:59 Pappenheimer Bodies Not Reportable 01/15/20 03:59 Sickle Cells Not Reportable 01/15/20 03:59 Target Cells 1+ 01/15/20 03:59 Tear Drop Cells Not Reportable 01/15/20 03:59 Ovalocytes Few 01/15/20 03:59 Helmet Cells Not Reportable 01/15/20 03:59 [place] Bodies Not Reportable 01/15/20 03:59 [place] Rings Not Reportable 01/15/20 03:59 [place] Cells Rare 01/15/20 03:59 Bite Cells Not Reportable 01/15/20 03:59 Crenated Cell Not Reportable 01/15/20 03:59 Elliptocytes Not Reportable 01/15/20 03:59 Acanthocytes (Spur) Not Reportable 01/15/20 03:59 Rouleaux Not Reportable 01/15/20 03:59 Hemoglobin C Crystals Not Reportable 01/15/20 03:59 Schistocytes Few 01/15/20 03:59 Malaria parasites Not Reportable 01/15/20 03:59 Jesus Bodies Not Reportable 01/15/20 03:59 Hem Pathologist Commnt No 01/15/20 03:59 PT 13.4 Sec. (12.2-14.9) 01/15/20 03:59 INR 1.01 (0.87-1.13) 01/15/20 03:59 Sodium 137 mmol/L (137-145) 01/15/20 03:59 Potassium 4.2 mmol/L (3.6-5.0) 01/15/20 03:59 Chloride 100.5 mmol/L (98-107) 01/15/20 03:59 Carbon Dioxide 22 mmol/L (22-30) 01/15/20 03:59 Anion Gap 19 mmol/L 01/15/20 03:59 BUN 15 mg/dL (9-20) 01/15/20 03:59 Creatinine 0.9 mg/dL (0.8-1.5) 01/15/20 03:59 Estimated GFR > 60 ml/min 01/15/20 03:59 BUN/Creatinine Ratio 17 % 01/15/20 03:59 Glucose 81 mg/dL (75-100) 01/15/20 03:59 Calcium 8.6 mg/dL (8.4-10.2) 01/15/20 03:59 Total Bilirubin 0.90 mg/dL (0.1-1.2) 01/14/20 12:53 AST 27 units/L (5-40) 01/14/20 12:53 ALT 20 units/L (7-56) 01/14/20 12:53 Alkaline Phosphatase 92 units/L (35-129) 01/14/20 12:53 Total Protein 9.5 g/dL (6.3-8.2) H 01/14/20 12:53 Albumin 4.6 g/dL (3.9-5) 01/14/20 12:53 Albumin/Globulin Ratio 0.9 % 01/14/20 12:53 Lipase 45 units/L (13-60) 01/14/20 12:53 Urine Color Yellow (Yellow) 01/14/20 Unknown Urine Turbidity Clear (Clear) 01/14/20 Unknown Urine pH 6.0 (5.0-7.0) 01/14/20 Unknown Ur Specific [place] 1.031 (1.003-1.030) H 01/14/20 Unknown Urine Protein 100 mg/dl mg/dL (Negative) 01/14/20 Unknown Urine Glucose (UA) Neg mg/dL (Negative) 01/14/20 Unknown Urine Ketones Tr mg/dL (Negative) 01/14/20 Unknown Urine Blood Sm (Negative) 01/14/20 Unknown Urine Nitrite Neg (Negative) 01/14/20 Unknown Urine Bilirubin Neg (Negative) 01/14/20 Unknown Urine Urobilinogen < 2.0 mg/dL (<2.0) 01/14/20 Unknown Ur Leukocyte Esterase Tr (Negative) 01/14/20 Unknown Urine WBC (Auto) 18.0 /HPF (0.0-6.0) H 01/14/20 Unknown Urine RBC (Auto) 11.0 /HPF (0.0-6.0) 01/14/20 Unknown U Epithel Cells (Auto) 3.0 /HPF (0-13.0) 01/14/20 Unknown Urine Mucus 3+ /HPF 01/14/20 Unknown [place]/IV: Voiding Method Toilet IV Catheter Type [Right Peripheral IV Antecubital] Active Medications - Current Medications Current Medications: Generic Name Dose Route Start Last Admin Trade Name Freq PRN Reason Stop Dose Admin Acetaminophen 650 mg 01/14/20 22:09 Tylenol PO Q4H PRN Pain MILD(1-3)/Fever >100.5/LOGAN Sodium Chloride 1,000 mls @ 125 mls/hr 01/14/20 22:15 01/15/20 05:22 Nacl 0.9% 1000 Ml IV 125 mls/hr DIRECT NILTON Administration Levofloxacin/Dextrose 750 mg in 150 mls @ 100 mls/hr 01/15/20 10:00 01/15/20 09:50 Levaquin 750mg/150ml IV 100 mls/hr Q24HR NILTON Administration Protocol Metronidazole 500 mg in 100 mls @ 100 mls/hr 01/15/20 06:00 01/15/20 05:21 Flagyl 500 Mg/100 Ml IV 100 mls/hr Q8HR NILTON Administration Protocol Magnesium Hydroxide 30 ml 01/14/20 22:09 Milk Of Magnesia PO Q4H PRN Constipation Morphine Sulfate 2 mg 01/14/20 22:09 Morphine IV Q4H PRN Pain, Moderate (4-6) Ondansetron HCl 4 mg 01/14/20 22:09 Zofran IV Q8H PRN Nausea And Vomiting Sodium Chloride 10 ml 01/15/20 10:00 01/15/20 09:51 Sodium Chloride Flush Syringe 10 Ml IV 10 ml BID NILTON Administration Sodium Chloride 10 ml 01/14/20 22:09 Sodium Chloride Flush Syringe 10 Ml IV PRN PRN LINE FLUSH
--- NOTE | 2020-01-15 12:56 | Progress Note ---
Assessment and Plan 44-year-old male with mild left-sided colitis Plan: 1. Regular diet 2. Discharged on p.o. antibiotics, Cipro/Flagyl x10 days total 3. Outpatient follow-up with gastroenterology [facility] to [facility] from surgery standpoint. We will sign off. Thank you, please call with questions Subjective Date of service: 01/15/20 Narrative: Patient seen and examined. No complaints. Abdominal pain, nausea, vomiting is completely resolved. He tolerated a regular diet this morning without difficulty. No fevers, chills. Objective Vital Signs - 12hr 01/15/20 01/15/20 01/15/20 03:53 07:11 11:58 Temperature 98.0 F 98.2 F 98.0 F Pulse Rate 57 L 65 61 Respiratory 18 18 20 Rate Blood Pressure 101/61 100/66 101/62 O2 Sat by Pulse 98 100 98 Oximetry - General physical appearance Narrative Exam: Gen.: Awake, alert, oriented 3. No apparent distress ENT: Trachea midline. No lymphadenopathy. No scleral icterus or conjunctival pallor CV: S1, S2 present Respiratory: No audible wheezes Abdomen: Soft, nondistended, nontender. No rebound, rigidity, guarding Extremities: No clubbing, cyanosis, edema - Labs 01/15/20 03:59 01/15/20 03:59 Diabetes panel 01/14/20 01/15/20 Range/Units 12:53 03:59 Sodium 137 137 (137-145) mmol/L Potassium 4.2 4.2 (3.6-5.0) mmol/L Chloride 95.8 L 100.5 (98-107) mmol/L Carbon Dioxide 23 22 (22-30) mmol/L BUN 15 15 (9-20) mg/dL Creatinine 1.0 0.9 (0.8-1.5) mg/dL Glucose 87 81 (75-100) mg/dL Calcium 9.8 8.6 (8.4-10.2) mg/dL AST 27 (5-40) units/L ALT 20 (7-56) units/L Alkaline Phosphatase 92 (35-129) units/L Total Protein 9.5 H (6.3-8.2) g/dL Albumin 4.6 (3.9-5) g/dL Calcium panel 05/28/20 05/29/20 Range/Units 12:53 03:59 Calcium 9.8 8.6 (8.4-10.2) mg/dL Albumin 4.6 (3.9-5) g/dL Pituitary panel 01/14/20 01/15/20 Range/Units 12:53 03:59 Sodium 137 137 (137-145) mmol/L Potassium 4.2 4.2 (3.6-5.0) mmol/L Chloride 95.8 L 100.5 (98-107) mmol/L Carbon Dioxide 23 22 (22-30) mmol/L BUN 15 15 (9-20) mg/dL Creatinine 1.0 0.9 (0.8-1.5) mg/dL Glucose 87 81 (75-100) mg/dL Calcium 9.8 8.6 (8.4-10.2) mg/dL Adrenal panel 01/14/20 01/15/20 Range/Units 12:53 03:59 Sodium 137 137 (137-145) mmol/L Potassium 4.2 4.2 (3.6-5.0) mmol/L Chloride 95.8 L 100.5 (98-107) mmol/L Carbon Dioxide 23 22 (22-30) mmol/L BUN 15 15 (9-20) mg/dL Creatinine 1.0 0.9 (0.8-1.5) mg/dL Glucose 87 81 (75-100) mg/dL Calcium 9.8 8.6 (8.4-10.2) mg/dL Total Bilirubin 0.90 (0.1-1.2) mg/dL AST 27 (5-40) units/L ALT 20 (7-56) units/L Alkaline Phosphatase 92 (35-129) units/L Total Protein 9.5 H (6.3-8.2) g/dL Albumin 4.6 (3.9-5) g/dL
--- NOTE | 2020-01-15 18:02 | Gastroenterology Consultation ---
History of Present Illness - Reason for Consult Consult date: 01/15/20 Colitis Requesting physician: SUNITA PHELAN - History of Present Illness The patient is a 44 yo male admitted with L-sided colitis. His symptoms have been present about 3 days, and include N/V, L-sided non-radiating pain, but no diarrhea. He had chills at home. Since starting abx on admit, the abdominal pain has mostly resolved, and he is tolerating a regular diet. He denies recent abx use or a hx of C diff. His only medication is Biktarvy. He is not a smoker; there is no family hx of IBD. He has not had a recent colonoscopy. Past History Past Medical History: HIV/AIDS Past Surgical History: No surgical history Social history: no significant social history Family history: cancer (Sister with colon cancer in her 30s) Medications and Allergies Allergies Allergy/AdvReac Type Severity Reaction Status Date / Time No Known Allergies Allergy Verified 01/14/20 12:07 Home Medications Medication Instructions Recorded Confirmed Last Taken Type Bictegrav/Emtricit/Tenofov Ala 1 tab PO DAILY 01/14/20 01/14/20 01/13/20 History [Biktarvy 50-200-25 mg (Nf)] 1 Active Meds: Active Medications Acetaminophen (Tylenol) 650 mg PO Q4H PRN PRN Reason: Pain MILD(1-3)/Fever >100.5/LOGAN Levofloxacin/Dextrose (Levaquin 750mg/150ml) 750 mg in 150 mls @ 100 mls/hr IV Q24HR NILTON; Protocol Last Admin: 01/15/20 09:50 Dose: 100 mls/hr Documented by: Metronidazole (Flagyl 500 Mg/100 Ml) 500 mg in 100 mls @ 100 mls/hr IV Q8HR NIL[facility]; Protocol Last Admin: 01/15/20 13:16 Dose: 100 mls/hr Documented by: Magnesium Hydroxide (Milk Of Magnesia) 30 ml PO Q4H PRN PRN Reason: Constipation Morphine Sulfate (Morphine) 2 mg IV Q4H PRN PRN Reason: Pain, Moderate (4-6) Ondansetron HCl (Zofran) 4 mg IV Q8H PRN PRN Reason: Nausea And Vomiting Sodium Chloride (Sodium Chloride Flush Syringe 10 Ml) 10 ml IV BID [facility] Last Admin: 01/15/20 09:51 Dose: 10 ml Documented by: Sodium Chloride (Sodium Chloride Flush Syringe 10 Ml) 10 ml IV PRN PRN PRN Reason: LINE FLUSH I HAVE REVIEWED/RECONCILED MEDICATIONS Review of Systems - Review of Systems All systems: negative (as noted in the HPI.) Exam - Constitutional Vital Signs: Temp Pulse Resp BP Pulse Ox 98.0 F 61 20 101/62 98 01/15/20 11:58 01/15/20 11:58 01/15/20 11:58 01/15/20 11:58 01/15/20 11:58 General appearance: no acute distress - EENT Eyes: PERRL, EOM intact ENT: hearing intact, clear oral mucosa, dentition normal - Neck Neck: supple, normal ROM - Respiratory Respiratory effort: normal Respiratory: bilateral: CTA - Cardiovascular Rhythm: regular Heart Sounds: Present: S1 & S2 Extremities: no ischemia, No edema - Gastrointestinal General gastrointestinal: Present: soft, non-tender, non-distended - Integumentary Integumentary: Present: clear, warm, dry - Neurologic Neurological: alert and oriented x3 - Labs CBC & Chem 7: 01/15/20 03:59 01/15/20 03:59 Lab Results: Laboratory Results - last 24 hr 01/15/20 01/15/20 01/15/20 03:59 03:59 03:59 WBC 5.6 RBC 5.59 H Hgb 12.9 Hct 40.5 MCV 72 L MCH 23 L MCHC 32 RDW 19.1 H Plt Count 298 Add Manual Diff Complete Total Counted 100 Seg Neutrophils % Press Breaker Seg Neuts % (Manual) 37.0 L Band Neutrophils % 0 Lymphocytes % (Manual) 50.0 H Reactive Lymphs % (Man) 0 Monocytes % (Manual) 2.0 Eosinophils % (Manual) 11.0 H Basophils % (Manual) 0 Metamyelocytes % 0 Myelocytes % 0 Promyelocytes % 0 Blast Cells % 0 Nucleated RBC % Not Reportable Seg Neutrophils # Man 2.1 Band Neutrophils # 0.0 Lymphocytes # (Manual) 2.8 Abs React Lymphs (Man) 0.0 Monocytes # (Manual) 0.1 Eosinophils # (Manual) 0.6 H Basophils # (Manual) 0.0 Metamyelocytes # 0.0 Myelocytes # 0.0 Promyelocytes # 0.0 Blast Cells # 0.0 WBC Morphology Not Reportable Hypersegmented Neuts Not Reportable Hyposegmented Neuts Not Reportable Hypogranular Neuts Not Reportable Smudge Cells Not Reportable Toxic Granulation Not Reportable Toxic Vacuolation Not Reportable Dohle Bodies Not Reportable Pelger-Huet Anomaly Not Reportable Ibeth Rods Not Reportable Platelet Estimate Consistent w auto Clumped Platelets Not Reportable Plt Clumps, EDTA Not Reportable Large Platelets Not Reportable Giant Platelets Not Reportable Platelet Satelliting Not Reportable Plt Morphology Comment Not Reportable RBC Morphology Not Reportable Dimorphic RBCs Not Reportable Polychromasia Not Reportable Hypochromasia 1+ Poikilocytosis Not Reportable Anisocytosis Not Reportable Microcytosis Not Reportable Macrocytosis Not Reportable Spherocytes Not Reportable Pappenheimer Bodies Not Reportable Sickle Cells Not Reportable Target Cells 1+ Tear Drop Cells Not Reportable Ovalocytes Few Helmet Cells Not Reportable Mendes-Mercer Bodies Not Reportable [place] Rings Not Reportable Naty Cells Rare Bite Cells Not Reportable Crenated Cell Not Reportable Elliptocytes Not Reportable Acanthocytes (Spur) Not Reportable Rouleaux Not Reportable Hemoglobin C Crystals Not Reportable Schistocytes Few Malaria parasites Not Reportable Jesus Bodies Not Reportable Hem Pathologist Commnt No PT 13.4 INR 1.01 Sodium 137 Potassium 4.2 Chloride 100.5 Carbon Dioxide 22 Anion Gap 19 BUN 15 Creatinine 0.9 Estimated GFR > 60 BUN/Creatinine Ratio 17 Glucose 81 Calcium 8.6 Assessment and Plan - Patient Problems (1) Acute colitis Current Visit: Yes Status: Acute Plan to address problem: - Patient improved with current abx regimen, and now tolerating regular diet. - Will d/c IV fluids, and OK to d/c home on PO abx. - Patient may f/u with us in the clinic for further management, including colonoscopy if indicated.
[2020-01-16] MEDS: metroNIDAZOLE/NS 500 MG/100 ML 500 MG/100 ML BAG IV SCH (05:03)
--- NOTE | 2020-01-16 09:44 | Discharge Summary ---
Providers - Providers Date of Admission: 01/14/20 21:34 Date of discharge: 01/16/20 Attending physician: MARYSOL AMBRIZ 01/14/20 22:12 Consult to Physician [CONS] Routine Comment: Consulting Provider: PERRI PLUNKETT Physician Instructions: Reason For Exam: abdominal pain, -COLITIS 01/15/20 11:43 Consult to Physician [CONS] Routine Comment: Consulting Provider: RICA ROSALES Physician Instructions: Reason For Exam: colitis Primary care physician: JEWELRY ESTIMATOR Hospitalization Reason for admission: colitis Condition: Stable Hospital course: The patient is a 44 yo male admitted with L-sided colitis. His symptoms were present for about 3 days, and include N/V, L-sided non-radiating pain, but no diarrhea. He had chills at home. The patient was started on antibiotics on admission. The abdominal pain has mostly resolved, and he is tolerating a regular diet. He denies recent abx use or a hx of C diff. His only medication is Biktarvy. He is not a smoker; there is no family hx of IBD. He has not had a recent colonoscopy. The patient was seen by GI and surgery who felt that there was no need for any intervention. The patient was also treated with IV fluids which were later discontinued when he was able to tolerate p.o. Patient will now be discharged home with antibiotics and follow-up with GI for further management, including colonoscopy if indicated. Dedicated discharge time 35 minutes. Disposition: - TO HOME OR SELFCARE Time spent for discharge: 35 - Discharge Diagnoses (1) Acute colitis Status: Acute Core Measure Documentation - Palliative Care Palliative Care/ Comfort Measures: Not Applicable - Core Measures Any of the following diagnoses?: none Exam - Constitutional Vitals: Temp Pulse Resp BP Pulse Ox 97.9 F 60 18 102/63 99 01/16/20 08:14 01/16/20 08:14 01/16/20 08:14 01/16/20 08:14 01/16/20 08:14 General appearance: Present: no acute distress, well-nourished - EENT Eyes: Present: PERRL ENT: hearing intact, clear oral mucosa - Neck Neck: Present: supple, normal ROM - Respiratory Respiratory effort: normal Respiratory: bilateral: CTA - Cardiovascular Heart Sounds: Present: S1 & S2. Absent: rub, click - Extremities Extremities: pulses symmetrical, No edema Peripheral Pulses: within normal limits - Abdominal General gastrointestinal: Present: soft, non-tender, non-distended, normal bowel sounds Male genitourinary: Present: normal - Integumentary Integumentary: Present: clear, warm, dry - Musculoskeletal Musculoskeletal: gait normal, strength equal bilaterally - Psychiatric Psychiatric: appropriate mood/affect, intact judgment & insight - Neurologic Neurologic: CNII-XII intact, moves all extremities Plan Activity: advance as tolerated Weight Bearing Status: Weight Bear as Tolerated Diet: regular Follow up with: PRIMARY CAREMD [Primary Care Provider] - 7 Days STEPHANIE JHAVERI MD [Staff Physician] - 6 Weeks PERRI PLUNKETT DO [Staff Physician] - 7 Days Prescriptions: Ciprofloxacin HCl [Ciprofloxacin TAB] 500 mg PO Q12HR #20 tab metroNIDAZOLE [Flagyl] 500 mg PO Q8HR #30 tablet oxyCODONE /ACETAMINOPHEN [Percocet 5/325] 1 tab PO Q4HR #10 tab
[2020-01-16 13:23] VITALS: BP 104/63
== END 2020-01-16 13:00 | disposition home or self-care (01) | DRG 977 ==
LOC: ED 11:56 → 4A 21:34
PROVIDERS: ADMIT Internal Medicine Geriatric Medicine; ATTEND Hospitalist
DX: K52.9 Noninfective gastroenteritis and colitis, unspecified (principal); B20 Human immunodeficiency virus [HIV] disease; I10 Essential (primary) hypertension; Z80.0 Family history of malignant neoplasm of digestive organs
CPT/HCPCS: 36415; 74177; 80048; 80053; 81001; 83690; 85007; 85025; 85610; 87086; G0378; J1956; J2270; J2405; J7030; Q9967